=== PATIENT | female | born 1960 | race Caucasian/White ===

== ENCOUNTER → 2016-07-13 | Day surgery (SDC) | payer BC ==
[~2016-07-13] MED LIST: ACETAMINOPHEN PO; CLARITIN10 M3; LIPITOR20 MG; LISINOPRIL-HCTZ1 T14 PO; NEXAFED30 MG PO; PERCOCET5/325 PO
--- NOTE | ~2016-07-13 | OR ---
Unit #: [id number] #: [id number] Patient: ELENI STUART [id number] [address] [place], [place] [address] [id number] O MR#: [id number] NAME: ELENI STUART ROOM: Date of Procedure: 07/13/2016 Admission Date: 07/13/2016 Surgeon: Haresh Dowling M.D. : 1960 Attending Physician: Haresh Dowling M.D. Primary Care Physician: Harman Schwartz M.D. OPERATIVE REPORT PRIMARY CARE PHYSICIAN Harman Schwartz M.D. PREOPERATIVE DIAGNOSIS Colorectal cancer screening in an average-risk patient. PROCEDURES PERFORMED Colonoscopy and polypectomy. POSTOPERATIVE DIAGNOSES 1. Single sessile polyp in the distal sigmoid colon. The latter was removed using snare polypectomy. The polyp was about 6 to 7 mm in size. 2. Rest of the examination up to cecum and terminal ileum was normal. The quality of the prep was excellent. No diverticula or hemorrhoids were noted. RECOMMENDATIONS Follow up the results of polyp histology and consider repeat colonoscopy in 5 years. SEDATION USED MAC. DESCRIPTION OF PROCEDURE Following detailed explanation of potential risks and complications of a colonoscopy, namely perforation, bleeding, and complications related to sedation, the patient was brought to GI lab and laid in the left lateral decubitus position. A digital rectal examination was performed which was normal. Lubricated tip of the Olympus video colonoscope was inserted through the anus and advanced under direct vision. The scope was advanced past rectosigmoid into descending colon. No diverticula were seen in this area. The scope tip was then navigated all the way up to cecum with visualization of the ileocecal valve and the appendiceal orifice. Preparation was excellent with good visualization and photodocumentation was obtained. Last few inches of the terminal ileum were also visualized after intubation of the ileocecal valve and appeared normal. Successive segments of the colonic mucosa were examined upon withdrawal and appeared unremarkable except for a single sessile polyp in the distal sigmoid colon. This was about 6 mm in size. It was removed using snare polypectomy. The polyp was retrieved and sent for histology. No additional polyps were noted. The patient did not have any diverticula nor any hemorrhoids. The scope was then withdrawn and the patient Unit #: [id number] #: [id number] Patient: ELENI STUART returned to the recovery area. She tolerated the procedure without any postprocedure complications. Dictated by.Mansi Waddell TD: 07/14/2016 01:17 JOB #: [id number] OPERATIVE REPORT Page 1 of 1 X Haresh Dowling MD PROCEDURE OPERATIVE NOTE
== END | disposition home or self-care (01) ==
LOC: COPS 08:20
DX: Z12.11 Encounter for screening for malignant neoplasm of colon (principal); D12.5 Benign neoplasm of sigmoid colon
CPT/HCPCS: 88305; J2250